=== PATIENT | male | born 1925 | race Caucasian/White ===

== ENCOUNTER 2016-08-07 20:33 | Emergency (ER) | payer MEDICARE, OTHER ==
--- NOTE | ~2016-08-07 | ER ---
PATIENT'S NAME: RADHALOYD [facility] AGE: 89 Y [address] ROOM: [place] [address] LOCATION: [facility] ADMIT DATE: 08/07/2016 ER/Outpatient Report DISCHARGE DATE: 08/07/2016 FAMILY PHYSICIAN: Saul Meraz MD ATTENDING PHYSICIAN: Av Miranda Time of Arrival: 2035 hours. Time of Evaluation: 2049 hours. CHIEF COMPLAINT: Left thumb injury. HISTORY OF PRESENT ILLNESS: The patient states approximately 1 hour prior to arrival, he cut his left thumb in table saw blade. The patient has abrased lacerated area to the left thumb pad. No nail bed involvement. Denies any other injuries. ALLERGIES: NO KNOWN ALLERGIES. CURRENT MEDICATIONS: On his chart and reviewed by me. PAST MEDICAL HISTORY: Hypertension. PAST SURGERIES: Pericardial cyst and cholecystectomy. SOCIAL HISTORY: The patient presents to the ER accompanied by his . Denies use of tobacco, drugs, or alcohol. States his last tetanus was 4 to 5 years ago. REVIEW OF SYSTEMS: All negative other than those mentioned in the HPI. PHYSICAL EXAMINATION: VITAL SIGNS: He states he is 5 feet 10 inches, he weighed 86 kg, blood pressure is 172/96, pulse is 74, respirations 16, temperature of 97.7, and O2 saturation was 96% on room air. GENERAL: He is awake, alert, and oriented x4. SKIN: [place], warm, and dry. RESPIRATIONS: Even and nonlabored. Lung sounds are clear throughout. HEART: Regular rate and rhythm. EXTREMITIES: The patient has an abrased laceration to the left thumb pad. No [facility] AGE: 89 Y [address] ROOM: [place], [place] [address] LOCATION: [facility] ADMIT DATE: 08/07/2016 ER/Outpatient Report DISCHARGE DATE: 08/07/2016 FAMILY PHYSICIAN: Saul Meraz MD ATTENDING PHYSICIAN: Av Miranda nail involvement noted. It measures approximately 1.5 cm. LABORATORY DATA AND X-RAYS: X-ray was completed, reviewed with Dr. Miranda, no bony abnormality noted. EMERGENCY DEPARTMENT COURSE: Area was cleansed well with saline and Betadine. Irrigated it well with saline. Anesthetized with 1% plain Xylocaine and then closed with 4-0 Ethilon. The patient tolerated the procedure well. Continues to have sensation to the tip of his thumb. Nail bed remains pink. Finger tube gauze was applied. IMPRESSION: Laceration to the thumb. PLAN: Home. Rest. Keep the area clean and dry. Tylenol or ibuprofen as needed for discomfort. Sutures should be removed in one week. Follow up with his primary provider in 2 to 3 days if needed. He may return to the ER as needed. The patient verbalized understanding. GURDEEP OLIVER APRN FOR DO NITIN CALVILLO/umberto /[id number] d: 08/09/16 1950 t: 08/23/16 0845, OUTPATIENT REPORT
[~2016-08-07 20:33] MED LIST: COLACE100 MG PO; DETROL LA EXTEND4 MG PO; HUMIBID LA (MU600 MG PO; HYDRODIURIL12.5 MG PO; LASIX20 MG PO; LOPRESSOR50 M1 PO; LUPRON DEPOT-22.5 MG SUB-Q; MIRAPEX0.75 MG PO; NIFEREX-150) (150 MG PO; NORCO 5-325 MG1 TAB PO; PRILOSEC20 MG PO; ULTRAM50 MG PO; XTANDI40 MG PO
== END 2016-08-07 21:48 | disposition disaster alternative care site (69) ==
LOC: GACC 20:33
PROC: 0HQGXZZ Repair Left Hand Skin, External Approach (ICD-10-PCS; principal; 2016-08-07)
DX: S61.012A Laceration without foreign body of left thumb without damage to nail, initial encounter (principal); I10 Essential (primary) hypertension; W26.8XXA Contact with other sharp object(s), not elsewhere classified, initial encounter

== ENCOUNTER → 2016-11-08 | Day surgery (SDC) | payer MEDICARE ==
[~2016-11-08] VITALS: Ht 177.8 cm; Wt 83.2 kg
--- NOTE | ~2016-11-08 | HP ---
PATIENT'S NAME: [facility] AGE: 89 Y [address] 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 Subsequently, he had a total perineal prostatectomy. His disease progressed and in 2004, he had a course of radiation therapy to the prostatic bed. His PSA continued to rise in 2008 and he was started on androgen deprivation therapy. He also was started on Xtandi, but it was unable to tolerate this and it was discontinued. In 2014, he developed hydronephrosis of the right kidney and has had a stent since then. He is seen now for stent change. PAST MEDICAL HISTORY: Illnesses: 1. Hypertension. 2. Peptic ulcer disease. OPERATIONS: 1. Laminectomy. 2. Thoracotomy. 3. As above. ALLERGIES: NONE KNOWN. PHYSICAL EXAMINATION: GENERAL: A well-developed, well-nourished, alert male. CHEST: Clear to auscultation. HEART: Normal sinus rhythm. ABDOMEN: Soft with no palpable masses. : Normal penis. Testicles are normal to palpation. Prostatic fossa is empty. PATIENT'S NAME: [facility] AGE: 89 Y [address] ROOM: [place] [address] LOCATION: [facility] [place] ADMIT DATE: 11/08/2016 History & Physical DISCHARGE DATE: FAMILY PHYSICIAN: Saul Meraz MD ATTENDING PHYSICIAN: Siobhan Dorsey RECTAL: Negative. IMPRESSION: 1. Adenocarcinoma of the prostate. 2. Right ureteral obstruction with right ureteral stent. PLAN: Stent change. SIOBHAN DORSEY MD EKL/modl /[id number] D: [id number] T: [id number] HISTORY & PHYSICAL
--- NOTE | ~2016-11-08 | OR ---
PATIENT'S NAME: [facility] AGE: 89 Y [address] ROOM: [place] [address] [place] [facility] [place]MIT DATE: 11/08/2016 OR/Procedure Report DISCHARGE DATE: FAMILY PHYSICIAN: Saul Meraz MD ATTENDING PHYSICIAN: Siobhan Dorsey SURGEON: Siobhan Dorsey MD [employer] MANAGER: DATE OF PROCEDURE: 11/08/2016 PREOPERATIVE DIAGNOSES: 1. Carcinoma of the prostate. 2. Right ureteral obstruction. POSTOPERATIVE DIAGNOSES: 1. Carcinoma of the prostate. 2. Right ureteral obstruction. PROCEDURES: 1. Cystoscopy and removal of stent. 2. Cystoscopy and retrograde pyelograms. 3. Cystoscopy and insertion of stent 8 Slovenian 26 cm stent. DESCRIPTION OF PROCEDURE: After adequate anesthesia, he was prepped and draped. Cystoscope was passed. Anterior urethra was normal. Prostate was gone. 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 The stent was removed. A yellow open-ended catheter was inserted. Contrast media were injected for the retrograde pyelogram. The guidewire was then passed and over the guidewire, a 26 cm stent was passed, coiled nicely in the kidney and then in the bladder. He was accompanied to the recovery area. RETROGRADE PYELOGRAM REPORT: Initial film showed normal bony structures. After injection of contrast media, there was a narrowed area in the distal ureter with mild dilatation of the remaining ureter and renal pelvis. IMPRESSION: Hydroureteronephrosis, right kidney. SIOBHAN DORSEY MD PATIENT'S NAME: [facility] AGE: 89 Y [address] ROOM: [place] [address] [place] [facility] [place] ADMIT DATE: 11/08/2016 OR/Procedure Report DISCHARGE DATE: FAMILY PHYSICIAN: Saul Meraz MD ATTENDING PHYSICIAN: Siobhan Dorsey EKL/modl /[id number] d: 11/08/16800 t: 11/09/16 0519, OPERATIVE SUMMARY
[2016-11-08 06:20] LABS: BASOPHIL # 0.1 K/uL (0.0-0.2); BASOPHIL % 1.2 %; EOSINOPHIL # 0.5 K/uL (0.0-0.5); EOSINOPHIL % 10.3 %; HEMATOCRIT 40.2 % (33.0-50.0); HEMOGLOBIN 13.4 g/dL (11.0-16.0); IMMATURE GRANULOCYTE % 0.2 %; LYMPHOCYTE # 1.5 K/uL (0.8-4.0); LYMPHOCYTE % 29.6 %; MCH 31.1 pg (27.0-34.0); MCHC 33.3 gm/dL (32.0-36.5); MCV 93.3 fl (83.0-98.0); MONOCYTE # 0.8 K/uL (0.0-1.0); MONOCYTE % 15.4 %; MPV 10.2 fl (9.4-12.4); NEUTROPHIL # (ANC) 2.2 K/uL (1.4-9.0); NEUTROPHIL % 43.3 %; NRBC % 0 /100WBC (0-0.00); PLATELET COUNT 168 K/uL (150-450); RDW-CV 12.5 % (11.9-14.6); WBC 5.1 K/uL (4.0-11.0)
[2016-11-08 06:21] LABS: RBC 4.31 M/uL (3.50-5.50)
[2016-11-08 06:35] LABS: ALBUMIN 3.5 gm/dL (3.5-5.0); ANION GAP 11.5 (10.0-19.0); CALCIUM 8.5 mg/dL (8.5-10.5); CREATININE 1.4 mg/dL (0.6-1.3); POTASSIUM 4.5 mMol/L (3.7-5.1); TOTAL BILIRUBIN 0.8 mg/dL (0.0-1.5)
== END | disposition disaster alternative care site (69) ==
LOC: GPOC 11-07 09:00 → GSDC 05:44
PROVIDERS: Urology
PROC: 0TP98DZ Removal of Intraluminal Device from Ureter, Via Natural or Artificial Opening Endoscopic (ICD-10-PCS; principal; 2016-11-08)
PROC: 0T768DZ Dilation of Right Ureter with Intraluminal Device, Via Natural or Artificial Opening Endoscopic (ICD-10-PCS; 2016-11-08)
PROC: BT1DZZZ Fluoroscopy of Right Kidney, Ureter and Bladder (ICD-10-PCS; 2016-11-08)
DX: N13.1 Hydronephrosis with ureteral stricture, not elsewhere classified (principal); N30.40 Irradiation cystitis without hematuria; I10 Essential (primary) hypertension; Z87.11 Personal history of peptic ulcer disease; Z85.46 Personal history of malignant neoplasm of prostate; Z90.79 Acquired absence of other genital organ(s); Z98.890 Other specified postprocedural states
CPT/HCPCS: C1769; C1877; J0713; J2001; J7040; J7120